=== PATIENT | male | born 1970 | race Caucasian/White ===

== ENCOUNTER 2017-03-29 15:22 | Emergency (ER) | payer OTHER ==
[~2017-03-29] VITALS: Ht 188 cm; Wt 74.2 kg
[2017-03-29 15:26] VITALS: BP 130/75
[2017-03-29 15:58] LABS: PATH.CAST-FLAG NOT PRESENT; SPERM-FLAG NOT PRESENT; SRC-FLAG NOT PRESENT; XTAL-FLAG NOT PRESENT; YLC-FLAG NOT PRESENT
[2017-03-29] MEDS ORDERED: TAMSULOSIN 0.4 MG CAP.ER.24H PO ONE (17:30)
[2017-03-29] MEDS ORDERED: TAMSULOSIN 0.4 MG CAP.ER.24H ONE (17:32)
[2017-03-29 17:56] LABS: BLOOD UREA NITROGEN 15 mg/dL (7-18)
== END 2017-03-29 19:13 | disposition home or self-care (01) ==
LOC: ED 17:39
DX: D29.1 Benign neoplasm of prostate (principal)
CPT/HCPCS: 36415; 80048; 81001; 82040; 87077; 87086; 87186; 99284

== ENCOUNTER 2020-01-04 21:16 | Emergency (ER) | payer BC, OTHER ==
[~2020-01-04] VITALS: Ht 188 cm; Wt 64.6 kg
--- NOTE | 2020-01-04 21:47 | NUR ---
ASSESSMENT MADE. CHART UP FOR MD TO SEE. C/O FLU LIKE SYMPTOMS X 1.5 WEEK. NOW HAVING SOME CONSTRICTION ON HIS THROAT ( SORE THROAT ). HX OF ASTHMA.
[2020-01-04 22:54] LABS: BASOPHILS # (AUTO) 0.01 x10^3/uL (0-0.1); BASOPHILS % (AUTO) 0 % (0-1); EOSINOPHILS # (AUTO) 0.03 x10^3/uL (0-0.4); EOSINOPHILS % (AUTO) 1 % (1-7); LYMPHOCYTES # (AUTO) 0.67 x10^3/uL (1-3.4); LYMPHOCYTES % (AUTO) 17 % (22-44); MD NO; MEAN CORPUSCULAR HGB CONC 32.9 g/dL (33.2-36.2); MEAN CORPUSCULAR VOLUME 88.3 fL (81-97); MEAN PLATELET VOLUME 7.8 fL (7.4-10.4); MONOCYTES # (AUTO) 0.28 x10^3/uL (0.2-0.8); MONOCYTES % (AUTO) 7 % (2-9); NEUTROPHILS # (AUTO) 2.88 x10^3/uL (1.8-6.8); NEUTROPHILS % (AUTO) 74 % (42-75); PLATELET COUNT 179 x10^3/uL (130-400); RED BLOOD COUNT 4.73 x10^6/uL (4.38-5.82); RED CELL DISTRIBUTION WIDTH 12.9 % (9.4-14.8)
--- NOTE | 2020-01-04 22:56 | NUR ---
X ray done. labs drawn by [employer].
[2020-01-04 22:58] LABS: ANION GAP 3 mmol/L (5-15); CALCIUM 8.8 mg/dL (8.5-10.1); CHLORIDE 108 mmol/L (98-107); CREATININE 0.96 mg/dL (0.7-1.3)
[2020-01-04 22:59] LABS: ALBUMIN 3.6 g/dL (3.4-5.0)
[2020-01-04 23:02] LABS: TROPONIN I < 0.015 ng/mL (0.000-0.045)
--- NOTE | 2020-01-04 23:15 | NUR ---
ERP at bedside for re-eval.
--- NOTE | 2020-01-04 23:40 | NUR ---
patient discharged with instruction. verbalized understanding.
[2020-01-04 23:42] VITALS: BP 119/72
== END 2020-01-04 23:45 | disposition home or self-care (01) ==
LOC: ED 22:16
DX: J02.8 Acute pharyngitis due to other specified organisms (principal); B97.89 Other viral agents as the cause of diseases classified elsewhere; I44.5 Left posterior fascicular block; I51.7 Cardiomegaly; R07.89 Other chest pain
CPT/HCPCS: 36415; 71045; 80048; 82040; 84484; 85025; 93005; 99285

== ENCOUNTER 2020-01-11 09:28 | Emergency (ER) | payer BC ==
[~2020-01-11] VITALS: Ht 188 cm; Wt 65.0 kg
[2020-01-11 09:36] VITALS: BP 140/85
== END 2020-01-11 10:23 | disposition home or self-care (01) ==
LOC: ED 10:09
DX: B34.9 Viral infection, unspecified (principal); F17.210 Nicotine dependence, cigarettes, uncomplicated
CPT/HCPCS: 99283